=== PATIENT | female | born 1970 | race African-American/Black ===

== ENCOUNTER 2021-01-05 08:01 | Observation (INO) | payer OTHER, SELFPAY ==
[2021-01-04] VITALS (12 sets, daily range): BP systolic 101–135; BP diastolic 58–88; PULSE 55–77; RESP 10–16; TEMP 35.9–36.8; O2SAT 98–100
--- NOTE | 2021-01-04 | DI.RAD.S_ITS ---
PROCEDURE: XR PELVIS 1-2V INDICATIONS: RIGHT ANTERIOR HIP TECHNIQUE: 1 view of the lower pelvis acquired. COMPARISON: [facility], CR, XR HIP W PEL IF DONE RT 2V, 01/04/2021, 15:30. [facility], CR, XR PELVIS WITH LATERAL HIP RIGHT, 12/09/2020, 13:29. FINDINGS: Bones: Patient is status post right hip arthroplasty, with hardware components in expected positions. The hip joint appears congruent. The visualized bony structures appear intact. Soft tissues: Overlying postoperative changes are noted. No suspicious soft tissue densities. IMPRESSION: Expected postsurgical change for right hip arthroplasty. Dictated by: Josefina Navarrete MD, PhD on 01/05/2021 at 14:02 Approved by: Josefina Navarrete MD, PhD on 01/05/2021 at 14:02
--- NOTE | 2021-01-04 08:38 | DI.RAD.S_ITS ---
PROCEDURE: XR HIP W PEL IF DONE RT 2V INDICATIONS: INTEROPERATIVE RIGHT HIP TECHNIQUE: 2 view(s) of the hip acquired. COMPARISON: None. FINDINGS: Bones: Intraoperative images demonstrate postsurgical changes compatible with total right hip arthroplasty. Hardware components are in expected position. Soft tissues: Overlying postoperative changes are noted. No suspicious soft tissue densities. IMPRESSION: Expected postsurgical change for right hip arthroplasty. Dictated by: Josefina Navarrete MD, PhD on 01/04/2021 at 16:49 Approved by: Josefina Navarrete MD, PhD on 01/04/2021 at 16:49
[2021-01-04] MEDS: LACTATED RINGERS 1,000 ML 42 ML IV ×2 (11:58→16:26)
--- NOTE | 2021-01-04 12:17 | SUR.PREOP ---
Rapid Covid sent to lab, hand off at 1131 to fingernail technician, 1218 called Lab to check on results, no results available yet-
[2021-01-04 12:54] LABS: COVID19 -Nasal RAPID Negative (Negative)
[2021-01-04] MEDS: ACETAMINOPHEN 325 MG TABLET 975 MG PO (13:06)
[2021-01-04] MEDS: CELECOXIB 200 MG CAPSULE PO (13:07)
--- NOTE | 2021-01-04 13:45 | PM.PREOP ---
Pre-operative Note COVID-19 COVID-19 status: Negative Result date/Date tested (Pos, Neg/Pending): 01/04/21 Interval Note History & Physical reviewed/Exam performed by Physician: Yes Changes to H&P: No H&P completed within 30 days and has changed as indicated here:: Plan for right anterior DONALDO
[2021-01-04] MEDS: CEFAZOLIN 1 GM VIAL 2 GM IV ×2 (14:30→22:04)
--- NOTE | 2021-01-04 14:54 | SUR.OPER ---
Supine on padded [place] table with bilateral legs secured in padded positioning boots and suspended in positioning spars, operative leg in traction per surgeon. Head on one pillow. Arm on non-operative side secured on padded armboard <90 degrees abduction. Arm on operative side padded and resting across chest then secured with tape over sheet. Padded perineal post in place per surgeon.
[2021-01-04] MEDS: KETOROLAC 30 MG/ML VIAL IV (15:07)
[2021-01-04] MEDS: ROPIVACAINE 0.5% PF 5 MG/ML 20ML VIAL 10 ML INJ (15:07)
[2021-01-04] MEDS: MORPHINE 4 MG/ML INJ INJ (15:08)
[2021-01-04] MEDS: TRANEXAMIC ACID 1,000 MG VIAL 2000 MG INJ ×2 (15:09→16:21)
--- NOTE | 2021-01-04 16:37 | P.OP_ITS ---
Operative Date/Time/Diagnoses Date of procedure: 01/04/21 Time of procedure: 16:37 Pre-op diagnosis: right hip OA Post-op diagnosis: same Procedure & Clinicians Procedure: Right anterior DONALDO Same procedure as scheduled: Yes Indications: Right hip osteoarthritis resistant to further conservative measures Surgeon: Elpidio Cuellar Salvager Helper: Adalid Rincon Anesthesia Type: General and Spinal Operative Notes Findings: [id number] articulation of the weight-bearing portion of the right hip joint Closure Type: primary Specimen(s): none sent Prosthetic devices, grafts, tissues, transplants, or devices: Garces and Nephew 52 mm R3 three-hole cup 1x 25 mm screw 1x 15 mm screw 52 mm x 36 mm delta biolox ceramic acetabular liner Size 7 standard offset anthology stem 36+ 0 delta Biolox ceramic head Estimated Blood Loss (mL): 300 Procedure in detail: patient was met in the preoperative holding area where the site and side of surgery were marked by . Informed consent had been reviewed and signed in clinic but was also reviewed the preoperative holding area. All last minute questions were answered. Patient was then brought back in the operating room where she received a spinal anesthetic. She was then transferred onto the [place] table. Bilateral feet were placed in well-padded [place] table boots. She was induced under general anesthesia. The right lower extremity then prepped and draped in normal sterile fashion. A surgical time-out was performed verifying the site and side of surgery as well as the name of the patient. A 10. Blade was then used to incise the skin approximately 2 cm distal and 1 cm lateral to the ASIS aiming towards the fibular head the proximal total length of about 7 cm. Electrocautery dissection was carried down to the level of the tensor fascia. A new 10. Blade was then used to incise the tensor fascia in line with its fibers. An Allis clamp was placed on the medial leaflet and the tensor muscle itself was reflected laterally. A Cobra was placed over the superior aspect of the femoral neck. A Meyerding retractor was then placed over the lateral aspect of the rectus femoris and retracted medially to give us good exposure to the ascending branches of the circumflex femoral vessel. These were coagulated using electrocautery. A 2nd Cobra retractors then placed under the inferior aspect of the femoral neck and a bent Hohmann was placed over the anterior aspect of the acetabulum to give us exposure to our capsule. Inverted T-shaped capsulotomy was then performed. A FiberWire suture was used for the tag suture for the superior leaflet and inferior leaflets. The capsule was then released off the neck and the Cobra retractors were then placed intracapsularly. This gave us good exposure to femoral neck. A reciprocating saw was then used to make a femoral neck cut based off of our neck height cut based off our preoperative template standing films. Corkscrew was then used to remove the femoral head. A soft tissue sleeve protector was then placed into the wound and Cobra retractors then replaced to give us exposure to the acetabulum the pulvinar was then removed using electrocautery and suction. The remnant of the labrum was then also removed with a [place] blade. I began reaming with a 46 mm Reamer to medialized and then began upsizing by 2s to a 50 mm Reamer at which point we brought in fluoroscopy. Under fluoroscopic guidance the last several reamers were reamed. A 50 mm Reamer was used followed by 51 and 52. The 52 mm Reamer had good resistance and we selected a 52 mm R3 three-hole cup. This was then malleted into place under fluoroscopic guidance and 2 screws were then placed 1x 25 mm in length a 2nd 15 mm in length both hips good purchase. The acetabular liner was then placed and malleted into place making sure the metal reamed was concentric around the rim of the cup. The ceramic liner appeared to be well seated and was stable without any fracture. Then turned our attention to the femoral side a femoral elevator hook was placed under the posterior aspect of the femur the femur was then externally rotated to 120? extended to the floor and adducted. A bent Hohmann was then placed over the superior aspect the superior leaflet of the capsulotomy and the capsule is then further released off the inner shoulder of the greater trochanter. This produces soft spot a large single prong retractor was then placed over the grea ter trochanter through the soft spot. A Meyerding retractor was then placed over the medial calcar to give us exposure to the femoral neck. Canal finer was then used followed by a chili pepper broach followed by a 1. Broach I then began upsizing by once until I got to a size 6. I then calcar planed off the size 6 femoral trial trialed with a standard offset neck with a 36+ 0 the hip was then reduced. The hip was stable to maximal external rotation as well as external rotation 90? extended the floor. Fluoroscopy was brought in which showed that we are a couple mm long on this side however this was acceptable and she will need arthroplasty on the contralateral side in the near future And she is short on this side due to collapse of the joint. The femoral stem however appeared that was slightly undersized as well as slightly in varus. The hip was then dislocated the trial 6. Stem was then countersunk an effort to lateralize was made. A 7. Broach was then placed. We then selected a size 7 standard offset anthology stem this was malleted into place we then placed a 36+ 0 head on the neck and malleted this into place as well the hip was then reduced a final time. Again was stable to maximal external rotation as well as external rotation 90? in extension the floor. Betadine solution was then placed in the wound and final fluoroscopic images were obtained. Betadine solution was allowed to sit for several minutes prior to being lavage with copious normal saline. Periarticular some local anesthetic was injected into the periarticular soft tissues as well as the capsule. Capsulotomy was then repaired using running Ethibond suture and the FiberWire tag sutures were removed. the tensor fascia layer was closed using a running locking 1. Vicryl followed by 2 Vicryl in the subcutaneous layer interrupted fashion followed by running 3-0 Stratafix in the subcuticular layer followed by Dermabond and Aquacel dressing. Complications: none Post-operative Condition: stable Disposition: PACU Plan for aftercare: 24 hours postop antibiotics, weight-bearing as tolerated right lower extremity, aspirin 81 mg b.i.d. for 6 weeks for DVT prophylaxis.
[2021-01-04] MEDS: LACTATED RINGERS 1,000 ML 125 ML IV (18:04)
[2021-01-04] MEDS: ASPIRIN EC 81 MG TABLET PO (20:43)
[2021-01-04] MEDS: DOCUSATE 100 MG CAPSULE PO (20:43)
[2021-01-04] MEDS: ACETAMINOPHEN 325 MG TABLET 650 MG PO (20:43)
[2021-01-04] MEDS: BUTORPHANOL 1 MG/ML VIAL 0.5 MG IV (20:43)
[2021-01-04] MEDS: ONDANSETRON 4 MG/2 ML INJ IV (22:55)
[2021-01-05] MEDS: METOCLOPRAMIDE 10 MG/2 ML INJ IV (00:20)
[2021-01-05] MEDS: diphenhydrAMINE 50 MG/ML VIAL 25 MG IV (00:20)
[2021-01-05] MEDS: LACTATED RINGERS 1,000 ML 125 ML IV (02:29)
[2021-01-05 05:00] VITALS: BP 112/70; PULSE 73; RESP 16; TEMP 36.6; O2SAT 98
[2021-01-05] MEDS: CEFAZOLIN 1 GM VIAL 2 GM IV (05:54)
[2021-01-05 05:59] LABS: Hemoglobin 10.1 g/dL (12.0-16.0)
[2021-01-05 07:00] VITALS: BP 112/72; PULSE 54; RESP 16; TEMP 36.8; O2SAT 98
--- NOTE | 2021-01-05 07:41 | P.PN_ITS ---
Subjective Subjective Date Patient Seen: 01/05/21 Time Patient Seen: 07:41 Interval history: Patient states she is doing well overall and is in minimal discomfort at rest. At this time the patient denies fever, chills, nausea, chest pain, shortness of breath, or urinary retention. Patient reports good sensation throughout the bilateral lower extremities. She notes that work with physical therapy so far has gone well. Exam Vital Signs (past 8 hours): - 01/05/21 05:00 01/05/21 07:00 Temperature 97.8 F 98.2 F Pulse Rate 73 54 L Respiratory Rate 16 16 Blood Pressure 112/70 112/72 Pulse Oximetry 98 98 Oxygen Delivery Method Room Air Oxygen Flow Rate 0 Narrative Exam Narrative: 50-year-old female postop day 1 status post right anterior total hip arthroplasty. Is resting comfortably in chair, is in no acute distress, is alert and oriented x3. Skin is warm and dry, and the skin surrounding the incision site is free of erythema, warmth, induration, or discharge. Aquacel d ressing over the incision site is clean, dry, and intact. Good sensation appreciated throughout the bilateral lower extremities to light touch. Hip flexion performed bilaterally without difficulty or discomfort, left greater than right. Ankle dorsiflexion, plantar flexion, eversion, inversion performed bilaterally without difficulty or discomfort. Calves are soft and nontender, negative Homans sign. DP pulses palpated bilaterally. No other signs of DVT appreciated. Const General: cooperative, healthy appearing and comfortable Resp Effort & Inspection: normal respiratory effort and able to speak in complete sentences Skin General: no rashes or lesions noted Objective Labs Result Diagrams: 01/05/21 05:31 Labs: Laboratory Results - last 24 hr 01/04/21 01/05/21 12:31 05:31 Hgb 10.1 L Hct 32.0 L SARS-CoV-2 (PCR) Negative PFSH Medical History Anxiety Back pain Cervical cancer (2002) Depression Hyperkalemia (2020) IBS (irritable bowel syndrome) Neck pain Osteoarthritis PTSD (post-traumatic stress disorder) Surgical History History of arthroscopy of both knees History of hysterectomy (2002) Hx of abdominoplasty (2002) Hx of hernia repair (2002) Hx of removal of cyst Social History household members: children Smoking Status: Never smoker alcohol intake: current Assessment & Plan Post-op Postoperative Procedures: Procedures Operation Date: 01/04/21 13:45 Actual Procedures Side Surgeon p Total Hip Arthroplasty/Anterior Approach Right Elpidio Cuellar MD Postoperative day: 1 Postoperative status: doing well Postoperative plan: ambulate Postoperative plan narrative: Patient is to continue working on ambulation with the assistance of a front wheel walker with physical therapy. Current pain management regimen is to be continued. Aspirin 81 mg twice daily is to be continued for DVT prophylaxis. Standard total hip replacement protocol with anterior hip precautions. Pending successful work with PT discharge home likely today or tomorrow. Time Spent With Patient Time with patient: less than 15 minutes Quality VTE Deep Vein Thrombosis/Pulmonary Embolism Present on Admission: No
--- NOTE | 2021-01-05 08:00 | P.DS_ITS ---
History of Present Illness History of Present Illness Date Patient Seen: 01/05/21 Time Patient Seen: 08:01 Chief complaint: OPB Narrative: Pain is [id number]. Denies fever or chills. No nausea or vomiting. Patient has her son home to help her. Otherwise without complaints this morning. Discharge Providers Provider Discharge Date: 01/05/21 Consults: 01/04/21 08:37 Consult to Anesthesiology Routine Comment: Consulting Provider: Anesthesiologist Reason for consultation: Regional block for post operative pain control 01/04/21 17:39 Consult to Discharge Planning Routine Comment: Consult to Physical Therapy Evaluate & Treat Comment: Physician Instructions: post op DONALDO protocol Consult to Respiratory Therapy Evaluate & Treat Comment: Physician Instructions: Evaluate and treat 01/04/21 17:52 Consult to Pastoral Services Routine Comment: Per patient request Discharge provider: Adalid Rincon PA-C Summary Hospital Course Discharge Diagnosis: Right hip OA Hospital Course: Right anterior DONALDO Same procedure as scheduled: Yes Indications: Right hip osteoarthritis resistant to further conservative measures Surgeon: Elpidio Cuellar Sheep Killer: Adalid Rincon Anesthesia Type: General and Spinal Operative Notes Findings: [id number] articulation of the weight-bearing portion of the right hip joint Closure Type: primary Specimen(s): none sent Prosthetic devices, grafts, tissues, transplants, or devices: Garces and Nephew 52 mm R3 three-hole cup 1x 25 mm screw 1x 15 mm screw 52 mm x 36 mm delta biolox ceramic acetabular liner Size 7 standard offset anthology stem 36+ 0 delta Biolox ceramic head Estimated Blood Loss (mL): 300 Patient admitted to the hospital for right anterior total hip arthroplasty. Patient consented to the same. Patient taken operating room yesterday underwent right anterior total hip arthroplasty. Patient back in her room recovering well and is in stable condition. Patient does have assistance at home. She will work with physical therapy this morning. Discharge home today in stable condition after physical therapy. Status at Discharge Cognitive/behavioral status at discharge: at baseline, oriented Functional status at discharge: uses cane/walker Overall status at discharge: patient is progressing back to baseline Exam Vital Signs (past 8 hours): - 01/05/21 05:00 01/05/21 07:00 Temperature 97.8 F 98.2 F Pulse Rate 73 54 L Respiratory Rate 16 16 Blood Pressure 112/70 112/72 Pulse Oximetry 98 98 Oxygen Delivery Method Room Air Oxygen Flow Rate 0 Narrative Exam Narrative: Pleasant 50-year-old female resting comfortably in bed in no apparent distress. Right hip dressing is clean, dry and intact. Motor functions intact distal right lower extremity. Sensation grossly intact to light touch distal right lower extremity. Objective Labs Result Diagrams: 01/05/21 05:31 Labs: Laboratory Results - last 24 hr 01/04/21 01/05/21 12:31 05:31 Hgb 10.1 L Hct 32.0 L SARS-CoV-2 (PCR) Negative PFSH Medical History Anxiety Back pain Cervical cancer (2002) Depression Hyperkalemia (2020) IBS (irritable bowel syndrome) Neck pain Osteoarthritis PTSD (post-traumatic stress disorder) Surgical History History of arthroscopy of both knees History of hysterectomy (2002) Hx of abdominoplasty (2002) Hx of hernia repair (2002) Hx of removal of cyst Social History household members: children Smoking Status: Never smoker alcohol intake: current Discharge Assessment & Plan Assessment and Plan Assessment: Patient progressing as expected status post right anterior total hip arthroplasty. Plan of Treatment: Discharge home today after physical therapy in stable condition. Discharge Plan Discharge Plan Patient Disposition: Home Discharge orders & Medications Discharge Orders: Discharge (Order); Ordered 01/05/21 Ordered By: Adalid Rincon Prescriptions: New acetaminophen 325 mg Tablet 650 mg PO TID Qty: 60 RF: 0 aspirin 81 mg Tablet,Delayed Release (Dr/Ec) 81 mg PO BID Qty: 60 RF: 0 docusate sodium [DOK] 100 mg Capsule 100 mg PO BID Qty: 20 RF: 0 oxycodone 5 mg Tablet 5 mg PO Q3HR PRN (Reason: Pain, Moderate (4-6)) Qty: 45 RF: 0 Continued acyclovir 400 mg Tablet 400 mg PO BID PRN (Reason: Flare) RF: 0 Follow up/Referrals: Elpidio Cuellar MD [Physician] - (2 weeks) Diet/Activity/Treatments Diet: Diet as Tolerated Activity: Weight-bearing as tolerated Cold/Heat Therapy: Apply ice to hip as needed Skin/Wound/Dressing Care Report to your healthcare provider any signs of infection, such as:: chills, fever, increased pain, unusual drainage and unusual redness Dressing: Keep dressing clean and dry Visit Report/Discharge Packet Instructions: DI for Hip Replacement Stand Alone Forms: Surgery Discharge Discharge Data Attending Provider: Elpidio Cuellar VTE Deep Vein Thrombosis/Pulmonary Embolism Present on Admission: No
[2021-01-05] MEDS: ACETAMINOPHEN 325 MG TABLET 650 MG PO ×2 (08:11→13:21)
[2021-01-05] MEDS: DOCUSATE 100 MG CAPSULE PO (08:11)
[2021-01-05] MEDS: ASPIRIN EC 81 MG TABLET PO (08:11)
--- NOTE | 2021-01-05 09:15 | PT.IIE ---
Current Diagnoses Unilateral primary osteoarthritis, right hip (01/05/21) Surgery Performed Operation Date: 01/04/21 13:45 Actual Procedures p Total Hip Arthroplasty/Anterior Approach(Right) - Elpidio Cuellar MD Surgical History (Last Reviewed 01/05/21 @ 08:02 by Adalid Rincon PA-C) History of arthroscopy of both knees History of hysterectomy (2002) Hx of abdominoplasty (2002) Hx of hernia repair (2002) Hx of removal of cyst Medical History (Last Reviewed 01/05/21 @ 08:02 by Adalid Rincon PA-C) Anxiety Back pain Cervical cancer (2002) Depression Hyperkalemia (2020) IBS (irritable bowel syndrome) Neck pain Osteoarthritis PTSD (post-traumatic stress disorder) Physical Therapy Inpatient Evaluation/Re-Eval M1 PT/OT-IP Prior Functional Status Start: 01/05/21 12:08 Freq: NEEDED Status: Active Protocol: Document 01/05/21 09:15 AB (Rec: 01/05/21 12:29 AB [id number]) Medical Review Prior Functional Status Medical History Reviewed Yes Communication able to make needs known Mobility and Gait pt stated that she is independent with all mobilities and ambulation without AD but occasionally uses SPC depending on pain; stated that she has other chronic back issues and and LE /hip injuries Social History Household Members children Living Arrangements House Number of Floors (Floors) One Floor Number of Stairs To Enter/Railing? 1 step to enter Home Environment High Toilet,Tub/Shower Home Equipment Front Wheel Walker,Hand Held Shower Employment Status Student Additional Social History Comment pt will be mostly by herself at home due to son can assist when not at work. sated that she plans to have homehealth services to assist her as well as neighbors that may be able to assist as well if needed pt has a very high bed and has to go up a step to reach EOB M2 PT-IP Current Condition Start: 01/05/21 12:08 Freq: NEEDED Status: Active Protocol: Document 01/05/21 09:15 AB (Rec: 01/05/21 12:29 AB [email or web address]) Physical Therapy Current Condition Current Condition Evaluation Date 01/05/21 Treatment Diagnosis s/p R DONALDO anterior approach; difficulty in walking Onset Date 01/04/21 Precautions Anterior Hip Precautions No Hip Extension,No Hip External Rotation Weight Bearing Status Weight Bearing Status Weight Bear as Tolerated Allowed Weight Bearing Amount (enter % RLE WBAT or #) (%) M3 PT-IP Subjective Start: 01/05/21 12:08 Freq: NEEDED Status: Active Protocol: Document 01/05/21 09:15 AB (Rec: 01/05/21 12:29 AB [email or web address]) Subjective Physical Therapy Visit Type Type Initial Evaluation Visit Start Time 09:15 Visit Stop Time 10:30 Total Visit Minutes 75 Number of RN HEDIS Visits 0 Physical Therapy Visit Comments Patient Comments pt is agreeable to do PT Therapy Pain Assessment Pain Present Pain Present Denied Pain M4 PT-IP Mobility and Gait Start: 01/05/21 12:08 Freq: NEEDED Status: Active Protocol: Document 01/05/21 09:15 AB (Rec: 01/05/21 12:29 AB [email or web address]) PT-Bed Mobility Assessment Rolling Type of Rolling Log Rolling Level of Assist Standby Assistance Supine to Sit Supine to Sit Standby Assistance Sit to Supine Sit to Supine Standby Assistance Scooting Scooting to Edge of Bed Standby Assistance PT-Transfer Assessment Sit to and From Stand Sit to and from Stand Standby Assistance,Contact Guard Assistance Equipment Transfer Assistive Device Gait Belt,Front Wheeled Walker Orthotic/Prosthetic Devices or Brace: No Transfers Transfer Destination Bed,Chair Transfer Technique ambulated using FWW Transfer Ability Level of Assist Standby Assistance,Contact Guard Assistance Comments Mobility Comments educated pt on anterior hip precautions. pt was able to recall. completed sit to stand from chair with initial CGA and with heavy UE use. educated pt on sit to stand techniques and completed x 4 reps requiring SBA with initial cues and able to complete without cues towards end of repetition. ambulated in room using FWW ~ 40 ft initial CGA but only SBA towards end of ambulation. pt stated that she has a high bed at home. completed up/ down step stool backwards onto the bed using FWW SBA to CGA. pt demonstrated bed mobility PT and pt does a position first and rolls into the bed. educated pt on log roll bed mobility for safety and for back precaution as pt also has back problems. pt completed log roll bed mobity sit<>supine SBA. pt ambulated out in the hallway using FWW SBA. completed up/down platform step using FWW x 2 sets CGA and cues. pt ambulated back to her room. agreed to stay up on chair. positioned on chair. call light and table placed within reach. educated pt on tub transfer and car transfers. pt has no further concerns. informed nurse regarding pt's mobility. Gait Assessment Gait Gait Assistance Required: Standby Assistance,Contact Guard Assist Distance (Feet) 40 Able to Maintain Weight Bearing Status Yes During Gait Assistive Devices Assistive Device Gait Belt,Front Wheeled Walker Orthotic/Prosthetic Devices or Brace: No Gait Deviations General Gait Pattern Antalgic,Decreased Stride Length,Decreased Feet Clearance Factors Limiting Gait Function Factors Limiting Gait Function Decreased Activity Tolerance, Decreased Strength,Poor Balance Comments Gait Comments pls refer to mobility section for details Stair Climbing Assessment Evaluation Level of Assist On Stairs Standby Assistance,Contact Guard Assistance,1 Person Assistance Devices Stair Climbing Assistive Devices Front Wheel Walker Technique/Endurance Stair Climbing Direction Ascend and Descend Stair Climbing Technique Step to Step Number of Steps Climbed 1 Query Text: Stair Climbing Set # Repetitions (reps) 2 Comments Stair Climbing Comments pls refer to mobility section for details PT-Balance Assessment Sitting Balance and Reactions Static Sitting Balance Ability Normal Dynamic Sitting Balance Ability Normal Standing Balance and Reactions Static Standing Balance Ability Good Dynamic Standing Balance Ability Fair Device Used FWW M5 PT-IP Objective Assessments Start: 01/05/21 12:08 Freq: NEEDED Status: Active Protocol: Document 01/05/21 09:15 AB (Rec: 01/05/21 12:29 [email or web address]) Orientation Orientation/Cognition Level of Alertness Alert Orientation Name,Age,Birthday,Month,Date, Year,Day of Week,Place, Situation Language Function Ability No Deficits Noted Safety Awareness Understands Safety Issues Memory Description No Deficits Noted Gross Range of Motion Lower Extremity ROM Assessment Within Functional Limits Strength Lower Extremity Strength Assessment Right Impaired Hip 3-/5 Knee 4-/5 Coordination Assessment Gross Coordination Gross Coordination WNL Sensation Assessment Sensation Gross Sensation WNL Muscle Tone Muscle Tone WNL Yes M6 PT-IP Treatment Start: 01/05/21 12:08 Freq: NEEDED Status: Active Protocol: Document 01/05/21 09:15 AB (Rec: 01/05/21 12:29 [email or web address]) Physical Therapy Treatment Education Education Provided Precautions,Weight Bearing Status,Post-Op Packet,Safety M7 PT-IP Assessment and Plan Start: 01/05/21 12:08 Freq: NEEDED Status: Active Protocol: Document 01/05/21 09:15 AB (Rec: 01/05/21 12:29 AB [email or web address]) PT Summary Assessment and Plan Potential Rehabilitation Potential Good Status of Condition at Evaluation Stable Summary Impairments Pain,ROM,Strength,Balance, Cognition,Bed Mobility, Transfers,Gait,Activity Tolerance Assessment Summary pt requiring SBA to occasional CGA with mobility using FWW. pt plans to go home. Son can assist when off work and pt stated that her neighbors can also assist if needed. also plans to have homehealth services and PT to come in to assist pt. Pt may go home when medically stable. Goals Bed Mobility Goal Independent Transfer Goal Independent,Front Wheeled Walker Gait Goal Independent,Front Wheel Walker Gait Distance 150 Other Goals up/down 1 platform step using FWW mod I Days to Meet Goals 3 Frequency of Treatment Frequency Of Treatment Twice a Day Treatment Plan Physical Therapy Treatment Plan Bed Mobility Training,Transfer Training,Gait Training, Therapeutic Exercise,Balance Retraining,Post Op Education, Discharge Planning,Hot or Cold Pack,Neuromuscular Re-ed, Coordination Retraining,Manual Therapy Precautions Anterior Hip Precautions No Hip Extension,No Hip External Rotation Recommendations To Nursing Amount of Assist Needed 1 Person Assist Discharge Recommendations PT Discharge Recommendations Home with Assistance,Home Health Transportation Needs at Discharge Private Vehicle
--- NOTE | 2021-01-05 11:55 | CM.DPNOTE ---
Faxed face to face and order to [facility] per Katrin and received fax confirmation. Sonia Osuna CM Asst.
--- NOTE | 2021-01-05 13:22 | CM.IDA ---
Initial DCP Assessment Note Pt is a 50 yo female, resident of [place], now POD#1 from Rt hip surgery w/ Dr Cuellar PCP: Evelyne Torres Payer: [place] [employer] Met w/patient this morning, introduced role. 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 Patient explains she is active and indp at baseline, her mobility has been limited lately d/t pain. Patient expects to return home today w/HH and son to transport home. Son can also assist when home from work, friends can provide some assist throughout recovery. Patient has no agency preference so referral faxed to [facility] per calendar rotation, also, [facility] confirms they can go to [place]. HH order and completed and signed F2F faxed to [facility] by ANTONETTE Scott Plan: DC home today w/ [facility] RN/PT/OT/BOOT LACE CUTTER MACHINE via family transport REMY Rosado
--- NOTE | 2021-01-05 13:30 | PC.NURSE ---
Patient A/O x 4, given discharge instructions regarding f/u appointment, activity, s/s of infection and pain control. Patient verbalized understanding. Is voiding and passing flatus without complications. IV removed, patient tolerated. Patient discharged via wheelchair with aide assist.
== END 2021-01-05 13:32 | disposition home or self-care (01) ==
LOC: OR 10:34 → AC 10:34
PROVIDERS: Admitting Provider Orthopaedic Surgery Adult Reconstructive Orthopaedic Surgery; Referring Provider Orthopaedic Surgery Adult Reconstructive Orthopaedic Surgery; Visit Provider Orthopaedic Surgery Adult Reconstructive Orthopaedic Surgery
PROC: (CPT 27130; principal; 2021-01-04 13:45)
DX: M16.11 Unilateral primary osteoarthritis, right hip (principal); F41.9 Anxiety disorder, unspecified; G47.30 Sleep apnea, unspecified; F32.9 Major depressive disorder, single episode, unspecified
CPT/HCPCS: 27130; 36415; 72170; 73502; 76000; 85014; 85018; 87635; 97161; 97530; C1776; C9803; G0378; J0595; J0690; J1100; J1200; J1885; J2250; J2270; J2274; J2405; J2704; J2765; J3010